=== PATIENT | male | born 1960 | race Caucasian/White ===

== ENCOUNTER 2016-07-12 09:22 | Observation (INO) | payer BC ==
[2016-07-12] MEDS ORDERED: Acetaminophen/HYDROcodone 325-5 MG Tab PO PRN (10:06)
[2016-07-12] MEDS: Nicotine 21 MG/24 Hr Patch TRDERM SCH (10:58)
[2016-07-12] MEDS: Cyclobenzaprine 10 MG Tab PO SCH ×3 (10:59→21:03)
[2016-07-12] MEDS: Ibuprofen 800 MG Tab PO SCH ×3 (10:59→22:02)
[2016-07-12] MEDS: Acetaminophen/HYDROcodone 325-5 MG Tab PO PRN ×2 (15:39→22:03)
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
[2016-07-13] MEDS: Ibuprofen 800 MG Tab PO SCH ×4 (04:15→22:38)
[2016-07-13] MEDS: Nicotine 21 MG/24 Hr Patch TRDERM SCH (09:54)
[2016-07-13] MEDS: Cyclobenzaprine 10 MG Tab PO SCH ×3 (09:55→21:05)
--- NOTE | 2016-07-13 13:36 | PN ---
DATE SEEN: 07/13/2016 SUBJECTIVE: Mr. Bustamante is seen today for a followup of his back pain. Physical Therapy has been working with him and it has offered absolutely no improvement. They feel he has a structural problem, hard disk, and they do not think that they can do much for him. He says he is relatively comfortable if he lays flat. If he sits up, he immediately begins having pain, and he asked that I extend his back in order to get some relief. If he stands for any length of time, he is uncomfortable and almost immediately with pain radiating down into his left thigh. He has had no increased pain with cough or sneeze while he is lying down, and he says the medications have offered little or no improvement. However, he says if he lays down flat, he does not have to take anything because he is relatively comfortable. I reviewed the x-rays done at the clinic and showed significant degenerative changes, but no acute fractures that could be identified. No evidence of metastatic disease or other abnormalities. OBJECTIVE: GENERAL: He appears to be comfortable laying in bed, in no acute distress. VITAL SIGNS: He is afebrile. Blood pressure 123/72, pulse 58 and regular, respirations were 18 and unlabored. HEENT: Otherwise unremarkable. CHEST: Clear. CARDIOVASCULAR: Revealed a regular rhythm without gallop or rub. ABDOMEN: Mildly obese, but otherwise negative. He has some mildly positive straight leg raising on the left, especially if he is sitting up; if he is laying down, he can raise the leg up to 90 degrees without difficulties. Again, no neurologic deficits were noted in either lower extremity. No muscle atrophy or fasciculations were identified. IMPRESSION: Acute left low back pain after a near fall with evidence of L4 radiculopathy, especially when he is sitting up. PLAN: I think we will go ahead and proceed with the MRI and Therapy has given me the same opinion. We will follow from there. /[id number] /ANDREWL
[2016-07-14] MEDS: Ibuprofen 800 MG Tab PO SCH (04:15)
[2016-07-14] MEDS: Cyclobenzaprine 10 MG Tab PO SCH ×3 (09:31→20:01)
[2016-07-14] MEDS: Nicotine 21 MG/24 Hr Patch TRDERM SCH (09:31)
--- NOTE | 2016-07-14 13:21 | PN ---
DATE SEEN: 07/14/2016 SUBJECTIVE: Mr. Bustamante is seen today for followup of his back pain and leg pain. He says as long as he is lying down, he is quite comfortable and has no difficulties. It is only when he sits up or stands, that he has significant pain in his left low back radiating to the anterior thigh. As long as he is lying, he does not have to take any medications. PT has made little or no improvement in his discomfort, and he does not feel that the medicines have help much. We have ordered an MRI yesterday, but unfortunately, the person who does it was off and they were unable to do it until today. We are awaiting these results. OBJECTIVE: GENERAL: He is sitting comfortably and in no acute distress. He remains afebrile. VITAL SIGNS: Blood pressure 124/79, pulse 65 and regular, respirations are 18 and unlabored. HEENT: Otherwise unremarkable. CHEST: Clear. CARDIOVASCULAR: Unremarkable with a regular rhythm. ABDOMEN: Soft, slightly obese, but otherwise unremarkable. No tenderness, organomegaly, or masses. When lying down, the patient has negative straight leg raising. Neurologic: No neurologic deficits were identified. He has full range of motion to his hips and knees, and no pain. If I sit him up, however within minutes, he has positive straight leg raising about 30-40 degrees on the left with pain in his back and radiating into his left thigh. Again, no neurologic deficits were identified. IMPRESSION: Acute left low back pain with x-rays that are negative for fracture. PLAN: Await the results of the MRI, and we will proceed from there. Depending on those results, further planning can be made. /[id number] /ANDREWL
[2016-07-15] MEDS: Cyclobenzaprine 10 MG Tab PO SCH ×2 (09:15→13:11)
[2016-07-15] MEDS: Nicotine 21 MG/24 Hr Patch TRDERM SCH (09:15)
[2016-07-15] MEDS ORDERED: predniSONE 10 MG Tab PO SCH (10:15)
--- NOTE | 2016-07-15 11:46 | PN ---
DATE SEEN: 07/15/2016 SUBJECTIVE: This 56-year-old gentleman is seen today for followup of his back pain. We were able to get a MRI yesterday, and he says his pain really has not changed. He has little or no discomfort when lying flat. As soon as he stands up after a few minutes, he begins to have pain in his left low back area with radiation into his left thigh. He has no buttocks pain. Denies any bladder or bowel incontinence. As soon as he lies down, the pain seems to go away. He is able to get to and from the bathroom by himself. He is able to stand by the window for a few minutes, but then it begins to hurt, and then he will have to lie down. He says the pain medications really have not helped at all. OBJECTIVE: GENERAL: He is lying comfortably and at this time in no acute distress. VITAL SIGNS: Afebrile. Blood pressure today is 137/89, pulse is 62 and regular, respirations are 14 and unlabored. HEENT: Unremarkable, and the chest is clear. ABDOMEN: Somewhat obese, but otherwise unremarkable without tenderness, organomegaly, or masses. NEUROLOGIC: He has a negative straight leg raising when lying flat. If he sits up, however, straight leg raising is positive at about 45 degrees on the left, negative on the right. No neurological deficits of his lower extremities are identified. The muscle strength is equal bilaterally. Reflexes are intact in the knees and ankles. No sensory deficits are noted. LABORATORY DATA: I reviewed the results of the MRI. He has no problems with cord impingement that we can see. There is some mild disk bulge and at the T12- L1 level with mild to moderate facet arthropathy, but no neuroforaminal narrowing or central stenosis. At L1-L2, there is diffuse bulging disk with superimposed central disk protrusion. There is [id number] facet arthropathy and mild narrowing of the left lateral recess. There is left greater than right neural foraminal narrowing and mild central stenosis there. At L2-L3, he has diffuse disk bulging with moderate facet arthropathy. There is narrowing of the lateral recesses. There was mild to moderate, left greater than right narrowing of the neural foramina and a mild central stenosis. At L3- L4, there is diffuse disk bulging. Again, moderate facet arthropathy was noted. There is narrowing of the lateral recesses and moderate neuroforaminal narrowing with moderate central stenosis. At L4-L5, there is diffuse disk bulging; advanced facet arthropathy is seen, right greater than left. There is narrowing of the right greater than left lateral recess, and moderate right and mild left neuroforaminal narrowing and mild central stenosis. At L5-S1, there is diffuse disk bulging with moderate arthropathy. No central stenosis and only mild bilateral neuroforaminal narrowing. I have advised the patient of the findings. IMPRESSION: Degenerative disk disease and degenerative osteoarthritis of the lumbar spine with what appears to be maybe some moderate central spinal stenosis, probably from L1 to L3, L4 with resultant pain. PLAN: We discussed options with the patient. I have advised him he can lie at home just as easy as he can lie here, and now that we have the appropriate studies done, we will discharge him home. I am going to start him on a course of prednisone 30 mg p.o. daily to see if, in fact, we can calm this down a bit. I have advised him that if that does not work or if it only works for a short time, may require epidural steroid injection as the next treatment of choice. He says physical therapy did not help him much at all, and we will wait and watch and see what the steroids do. He is to follow up with his regular physician next week, Tuesday for recheck. Of course, if it becomes worse or notices any neurologic symptoms, to let us know. /[id number] /ANDREWL
[2016-07-15 17:27] VITALS: BP 135/71
--- NOTE | 2016-07-16 03:57 | DISCH ---
DISCHARGE DATE: 07/15/2016 REASON FOR ADMISSION: This 56-year-old male was admitted with acute low back pain radiating to his left thigh. He had missed the last step when going down some stairs and twisted his back. He initially noticed only minimal discomfort, but as the day progressed, it became progressively worse and it was to the point where he was unable to get up and out of bed. He presented to the clinic and was found to be miserable. Dr. Og sent him over here for admission. He denied any numbness or tingling of his lower extremities. He has a burning pain radiating into his left thigh when he stands or sits. It seems to be better when he lies down. He says he has had previous back injuries, but they have always seemed to get better over 3-4 days and never like this. He has had no previous back surgeries. Please see a copy of his admission H and P for further details. HOSPITAL COURSE: The patient was admitted, initially placed on bed rest, started on nonsteroidal anti-inflammatories and muscle relaxants. PT/OT was ordered and they evaluated him. They started treatments but the patient had no relief, and PT did not feel that they could improve anymore than what they were doing. X-rays had been done at the clinic and were read as showing some degenerative changes at multiple levels, but no acute fractures. An MRI was then ordered, but unfortunately we were unable to get it on the day it was ordered as the tech was gone. Next day, the MRI was accomplished and it showed some significant degenerative changes throughout, but he has some evidence of spinal stenosis, [id number] from L1-L3. No significant neuroforaminal compression. The patient has had little or no improvement with pain when he is up and walking, but if he lies down, he says he is pain-free. He can actually get to and from the bathroom now without significant discomfort as long as he limits the time he is upright and I have advised him that we could therefore probably discharge him home and he can rest at home. I am going to start him on prednisone 30 mg p.o. daily for the next 5-6 days and see if in fact, we can give him some improvement in his discomfort as I think this is probably from some spinal stenosis and hoping that the anti-inflammatory will help. He is comfortable with that. We will discharge him home and to follow up with his regular physician in 6 days for recheck. FINAL DIAGNOSES: 1. Acute low back pain presumably secondary to spinal stenosis and recent injury. 2. Degenerative osteoarthritis of the lumbar spine. DISCHARGE MEDICATIONS: Prednisone 30 mg p.o. daily. DISCHARGE DIET: As tolerated. DISCHARGE DISPOSITION: He will be discharged in the care of his family. DISCHARGE INSTRUCTIONS: He will be up as much as he can tolerate it, but if his pain becomes worse, he is to lie down. A followup was recommended next Tuesday with his regular physician for a recheck and of course, if any new neurologic symptoms are noted or he becomes worse in any way to let us know. /[id number] /EVELIA
== END 2016-07-15 16:40 | disposition home or self-care (01) ==
LOC: FB.MS 09:22
PROVIDERS: ADMIT Family Medicine; ATTEND Family Medicine
DX: M54.5 Low back pain (principal); M51.36 Other intervertebral disc degeneration, lumbar region; M47.896 Other spondylosis, lumbar region; F17.210 Nicotine dependence, cigarettes, uncomplicated
CPT/HCPCS: 36415; 72148; 80053; 85025; 85651; 97140; 97162; A9270; G0378; G0379

== ENCOUNTER 2017-10-19 17:09 | Emergency (ER) | payer BC ==
--- NOTE | 2017-10-19 18:20 | EDM.PDOC ---
ED HPI GENERAL MEDICAL PROBLEM - General Chief Complaint: Back Pain or Injury Stated Complaint: LOWER BACK PAIN Time Seen by Provider: 10/19/17 17:40 Source of Information: Reports: Patient, Family, Old Records History Limitations: Reports: No Limitations - History of Present Illness INITIAL COMMENTS - FREE TEXT/NARRATIVE: Yayo comes into [facility] ED with exacerbation of low back pain over the past 24 hrs. He apparently was sitting in an adjustable chair yesterday afternoon and attempted to adjust the height manually while still sitting. His back seemed to tighten up during this process, and has been problematic with walking and sleeping since. There are no long tract sxs in the LEs. He has a PMH of degenerative back disease, and had a L1-5 fusion last November 2017. He has been taking Ibuprofen for pain. Lower back region Pain Score (Numeric/FACES): 10 - Related Data Allergies Allergy/AdvReac Type Severity Reaction Status Date / Time No Known Allergies Allergy Verified 10/19/17 17:40 Home Meds: Home Meds traMADol [Ultram] 50 mg PO Q6H PRN #20 tab 10/19/17 [Rx] Past Medical History - Past Health History Medical/Surgical History: Denies Medical/Surgical History Cardiovascular History: Reports: Hypertension Respiratory History: Reports: COPD, Pneumonia, Recurrent, Other (See Below) Other Respiratory History: empyema, pleurisy Musculoskeletal History: Reports: Arthritis, Back Pain, Chronic Other Musculoskeletal History: scoliosis, Neurological History: Reports: None Endocrine/Metabolic History: Reports: Obesity/BMI 30+ Hematologic History: Reports: Blood Transfusion(s) - Infectious Disease History Infectious Disease History: Reports: Chicken Pox, Mumps - Past Surgical History Head Surgeries/Procedures: Reports: None Respiratory Surgical History: Reports: Pneumonectomy Neurological Surgical History: Reports: Spinal Fusion, Other (See Below) Other Neurological Surgeries/Procedures: spinal fusion L1-L5 Other Musculoskeletal Surgeries/Procedures:: L knee surgery Social & Family History - Family History Family Medical History: Noncontributory - Tobacco Use Smoking Status *Q: Current Every Day Smoker Years of Tobacco use: 34 Packs/Tins Daily: 3 - Caffeine Use Caffeine Use: Reports: None - Alcohol Use Days Per Week of Alcohol Use: 7 Number of Drinks Per Day: 8 Total Drinks Per Week: 56 - Recreational Drug Use Recreational Drug Use: No ED ROS GENERAL - Review of Systems Review Of Systems: ROS reveals no pertinent complaints other than HPI. ED EXAM,LOWER BACK PAIN/INJURY - Physical Exam Exam: See Below Exam Limited By: No Limitations General Appearance: Alert, WD/WN, No Apparent Distress, Obese Head: Normocephalic Neck: Normal Inspection, Supple, Non-Tender, Full Range of Motion Respiratory/Chest: No Respiratory Distress, Lungs Clear, Normal Breath Sounds, No Accessory Muscle Use, Chest Non-Tender Cardiovascular: Regular Rate, Rhythm, No Murmur (Male) Exam: Deferred Rectal (Males) Exam: Deferred Back Exam: Decreased Range of Motion, Paraspinal Tenderness Extremities: Normal Inspection, Normal Range of Motion, Non-Tender, No Pedal Edema Neurological: Alert, Normal Mood/Affect, Normal Dorsiflexion, CN II-XII Intact, Normal Plantar Flexion, Oriented x 3 Psychiatric: Normal Affect, Normal Mood Skin Exam: Warm, Dry, Intact, Normal Color Lymphatic: No Adenopathy Course - Vital Signs Text/Narrative:: I discussed his back disorder and need for ongoing rehabilitation. I will provide Tramadol 50 mg #8 taken as directed for breakthrough pain. He may continue NSAIDs as needed for chronic pain. I also made suggestions for wt loss and rehabiliation such as hydrotherapy. Last Recorded V/S: Last Vital Signs Temp 37.0 C 10/19/17 17:25 Pulse 74 10/19/17 17:25 Resp 20 10/19/17 17:25 BP 127/87 10/19/17 17:25 Pulse Ox 95 10/19/17 17:25 Departure - Departure Time of Disposition: 18:26 Disposition: Home, Self-Care 01 Condition: Fair Clinical Impression: Acute low back pain Qualifiers: Back pain laterality: unspecified Sciatica presence: without sciatica Qualified Code(s): M54.5 - Low back pain - Discharge Information Prescriptions: traMADol [Ultram] 50 mg PO Q6H PRN #20 tab PRN Reason: Breakthrough Pain Referrals: Nino Og MD [Primary Care Provider] - - Problem List & Annotations (1) Acute low back pain SNOMED Code(s): 405299674 Code(s): M54.5 - LOW BACK PAIN Status: Acute Current Visit: Yes Annotation/Comment:: I dispensed Tramadol 50 mg as directed for breakthrough pain, and suggested wt loss measures and rehabilitation. Qualifiers: Back pain laterality: unspecified Sciatica presence: without sciatica Qualified Code(s): M54.5 - Low back pain - Problem List Review Problem List Initiated/Reviewed/Updated: Yes - Assessment/Plan Plan: Follow up with PCP.
[2017-10-19] MEDS ORDERED: traMADol 50 MG Tab PO ONE (18:24)
[2017-10-19 19:55] VITALS: BP 157/83
== END 2017-10-19 18:30 | disposition home or self-care (01) ==
LOC: FB.ED 17:09
DX: M54.5 Low back pain (principal); F17.210 Nicotine dependence, cigarettes, uncomplicated; J44.9 Chronic obstructive pulmonary disease, unspecified; I10 Essential (primary) hypertension; M19.90 Unspecified osteoarthritis, unspecified site
CPT/HCPCS: 99283; A9270